=== PATIENT | female | born 1965 | race Caucasian/White ===

== ENCOUNTER 2017-07-18 22:38 | Emergency (ER) | payer OTHER ==
[~2017-07-18] VITALS: Ht 160 cm; Wt 81.6 kg
[~2017-07-18 22:38] MED LIST: BUPROPION XL300 MG ORAL; OXYCONTIN10 MG ORAL
[2017-07-18 23:23] LABS: BASOPHILS % (AUTO) 0.6 % (0.0-2.0); EOSINOPHILS % (AUTO) 10.5 % (0.0-3.0); LYMPHOCYTES % (AUTO) 13.8 % (20.0-45.0); MEAN CORPUSCULAR HEMOGLOBIN 26.8 PG (27.0-31.0); MEAN CORPUSCULAR HGB CONC 30.3 G/DL (32.0-36.0); MEAN CORPUSCULAR VOLUME 88 FL (80-99); MONOCYTES % (AUTO) 3.6 % (1.0-10.0); NEUTROPHILS % (AUTO) 71.5 % (45.0-75.0); PLATELET COUNT 257 K/UL (150-450); RED BLOOD COUNT 5.11 M/UL (4.20-5.40); WHITE BLOOD COUNT 12.6 K/UL (4.8-10.8)
[2017-07-18 23:43] LABS: APPEARANCE,URINE CLOUDY; KETONES,URINE NEGATIVE (NEGATIVE); LEUKOCYTE ESTERASE ,URINE 3+ (NEGATIVE); NITRITE,URINE POSITIVE (NEGATIVE); PH,URINE 5 (4.5-8.0); PROTEIN,URINE 2+ (NEGATIVE); UROBILINOGEN,URINE NORMAL MG/DL (0.0-1.0)
[2017-07-18 23:50] LABS: ANION GAP 9 mmol/L (5-15); CALCIUM 9.6 MG/DL (8.5-10.1); CARBON DIOXIDE 31 MMOL/L (21-32); CHLORIDE 101 MMOL/L (98-107); GLOMERULAR FILTRATION RATE 58.2 mL/min (>60); POTASSIUM 3.9 MMOL/L (3.5-5.1); SODIUM 141 MMOL/L (136-145)
[2017-07-18 23:52] LABS: BACTERIA,URINE MANY /HPF; SQUAMOUS EPITHELIAL CELL,UR MANY /LPF (NONE/OCC); WBC,URINE TNTC /HPF (0 - 2)
[2017-07-18 23:56] LABS: ALANINE AMINOTRANSFERASE 20 U/L (12-78); ALBUMIN/GLOBULIN RATIO 1.1 (1.0-2.7); ASPARTATE AMINO TRANSFERASE 12 U/L (15-37); LIPASE 175 U/L (73-393); TOTAL PROTEIN 7.6 G/DL (6.4-8.2)
[2017-07-19] MEDS ORDERED: KEFLEX500 MG ORAL (01:23)
[2017-07-19] MEDS ORDERED: Cephalexin 500mg cap ORAL ONE (01:30)
[2017-07-19 01:36] VITALS: BP 114/80
--- NOTE | 2017-07-19 03:48 | Emergency Room Report ---
History of Present Illness General Chief Complaint: Abdominal Pain Source: Patient Present Illness HPI 51-year-old female presents ED complaining of abdominal pain and nausea. Patient states that approximately 3 weeks go she had a cholecystectomy done at the [facility]. States she's been having abdominal pain and headache and dizziness for the last 3 days. Pain is sharp, 8/10, nonradiating. Denies chest pain shortness of breath. Denies any diarrhea. No other aggravating relieving factors. Denies any other associated symptoms Allergies: Coded Allergies: No Known Allergies (Unverified , 07/18/17) Patient History Past Medical History: none Past Surgical History: samuel Pertinent Family History: none Social History: Denies: smoking, alcohol use, drug use Last Menstrual Period: 3 weeks ago Now: No - unk Immunizations: UTD Reviewed Nursing Documentation: PMH: Agreed, PSxH: Agreed Nursing Documentation-PMH Past Medical History: No History, Except For Hx Gastrointestinal Problems: Yes - cholecystectomy Hx Neurological Problems: No - mastocytosis Review of Systems All Other Systems: negative except mentioned in HPI Physical Exam Vital Signs Date Time Temp Pulse Resp B/P (MAP) Pulse Ox O2 Delivery O2 Flow Rate FiO2 07/18/17 22:25 97.9 110 16 114/80 98 Room Air Sp02 EP Interpretation: reviewed, normal General Appearance: no apparent distress, alert, GCS 15, non-toxic Head: normocephalic, atraumatic Eyes: bilateral eye normal inspection, bilateral eye PERRL ENT: hearing grossly normal, normal pharynx, no angioedema, normal voice Neck: full range of motion, supple/symm/no masses Respiratory: chest non-tender, lungs clear, normal breath sounds, speaking full sentences Cardiovascular #1: regular rate, rhythm, no edema Cardiovascular #2: 2+ carotid (R), 2+ carotid (L), 2+ radial (R), 2+ radial (L) , 2+ dorsalis pedis (R), 2+ dorsalis pedis (L) Gastrointestinal: normal bowel sounds, soft, non-distended, no guarding, no rebound, tenderness - epigastric Rectal: deferred Genitourinary: normal inspection, no CVA tenderness Musculoskeletal: back normal, gait/station normal, normal range of motion, non- tender Neurologic: alert, oriented x3, responsive, motor strength/tone normal, sensory intact, speech normal Psychiatric: judgement/insight normal, memory normal, mood/affect normal, no suicidal/homicidal ideation Reflexes: 3+ bicep (R), 3+ bicep (L), 3+ tricep (R), 3+ tricep (L), 3+ knee (R) , 3+ knee (L) Skin: normal color, no rash, warm/dry, well hydrated Lymphatic: no adenopathy Medical Decision Making Diagnostic Impression: Primary Impression: UTI (urinary tract infection) Qualified Codes: N39.0 - Urinary tract infection, site not specified Additional Impression: Abdominal pain Qualified Codes: R10.13 - Epigastric pain ER Course Hospital Course 51-year-old F presents to ED with abdominal pain/vomiting. s/p lap samuel Differential diagnosis includes- SBO, postop infection, gastritis Clinical course Patient placed on stretcher. After initial history and physical I ordered labs , IV fluids, pain medications and CT scan Labs - no leukocytosis, electrolytes ok, LFTs normal, UA + bacteria CT scan shows no acute pathology, postsurgical changes noted Keflex given in ED. Patient be safely discharged to home I feel this is a highly complex case requiring extensive working including EKG/ Rhythm strip, Xray/CT/US, Blood/urine lab work, repeat exams while in ED, and administration of strong opiates/narcotics for pain control, admission to hospital or close patient follow up. Diagnosis - UTI, abdominal pain Stable and discharged to home with Rx Keflex. Followup with PMD. Return to ED if symptoms recur or worsen Labs Test 07/18/17 23:00 07/18/17 23:10 White Blood Count 12.6 K/UL (4.8-10.8) Red Blood Count 5.11 M/UL (4.20-5.40) Hemoglobin 13.7 G/DL (12.0-16.0) Hematocrit 45.2 % (37.0-47.0) Mean Corpuscular Volume 88 FL (80-99) Mean Corpuscular Hemoglobin 26.8 PG (27.0-31.0) Mean Corpuscular Hemoglobin Concent 30.3 G/DL (32.0-36.0) Red Cell Distribution Width 13.0 % (11.6-14.8) Platelet Count 257 K/UL (150-450) Mean Platelet Volume 6.0 FL (6.5-10.1) Neutrophils (%) (Auto) 71.5 % (45.0-75.0) Lymphocytes (%) (Auto) 13.8 % (20.0-45.0) Monocytes (%) (Auto) 3.6 % (1.0-10.0) Eosinophils (%) (Auto) 10.5 % (0.0-3.0) Basophils (%) (Auto) 0.6 % (0.0-2.0) Sodium Level 141 MMOL/L (136-145) Potassium Level 3.9 MMOL/L (3.5-5.1) Chloride Level 101 MMOL/L (98-107) Carbon Dioxide Level 31 MMOL/L (21-32) Anion Gap 9 mmol/L (5-15) Blood Urea Nitrogen 10 mg/dL (7-18) Creatinine 1.0 MG/DL (0.55-1.30) Estimat Glomerular Filtration Rate 58.2 mL/min (>60) Glucose Level 113 MG/DL (74-106) Calcium Level 9.6 MG/DL (8.5-10.1) Total Bilirubin 0.4 MG/DL (0.2-1.0) Aspartate Amino Transf (AST/SGOT) 12 U/L (15-37) Alanine Aminotransferase (ALT/SGPT) 20 U/L (12-78) Alkaline Phosphatase 91 U/L (46-116) Total Protein 7.6 G/DL (6.4-8.2) Albumin 3.9 G/DL (3.4-5.0) Globulin 3.7 g/dL Albumin/Globulin Ratio 1.1 (1.0-2.7) Lipase 175 U/L (73-393) Urine Color Yellow Urine Appearance Cloudy Urine pH 5 (4.5-8.0) Urine Specific [place] 1.020 (1.005-1.035) Urine Protein 2+ (NEGATIVE) Urine Glucose (UA) Negative (NEGATIVE) Urine Ketones Negative (NEGATIVE) Urine Occult Blood 1+ (NEGATIVE) Urine Nitrite Positive (NEGATIVE) Urine Bilirubin Negative (NEGATIVE) Urine Urobilinogen Normal MG/DL (0.0-1.0) Urine Leukocyte Esterase 3+ (NEGATIVE) Urine RBC 2-4 /HPF (0 - 2) Urine WBC Tntc /HPF (0 - 2) Urine Squamous Epithelial Cells Many /LPF (NONE/OCC) Urine Bacteria Many /HPF (NONE) CT/MRI/US Diagnostic Results CT/MRI/US Diagnostic Results : Imaging Test Ordered: CT A/P Impression s/p cholecystectomy. postsurgical changes Last Vital Signs Date Time Temp Pulse Resp B/P (MAP) Pulse Ox O2 Delivery O2 Flow Rate FiO2 07/19/17 01:36 97.9 16 114/80 98 Room Air 07/19/17 01:36 88 Status: improved Disposition: HOME, SELF-CARE Condition: Stable Scripts Cephalexin* (KEFLEX*) 500 Mg Capsule 500 MG ORAL Q6H, #28 CAP 0 Refills Prov: KEHINDE PANCHAL M.D. 07/19/17 Patient Instructions: Dysuria KEHINDE PANCHAL M.D. Jul 19, 2017 03:48
--- NOTE | 2017-07-19 09:22 | Diagnostic Imaging Report ---
Indication: Abdominal pain, nausea vomiting, chills. Patient status post cholecystectomy 3 weeks ago. Comparison: None Technique: Contiguous helical CT images through the abdomen and pelvis was performed with intravenous contrast only. Oral contrast was not administered. Axial, coronal and sagittal reconstructions were reformatted. CT Dose: Total DLP: 685 mGycm; Total CTDI volume 13.2 Findings: The liver appears normal. Small nonspecific low-density lesion in the dome of the liver is seen which is too small to adequately characterize. Surgical clips are seen in the gallbladder fossa consistent with prior cholecystectomy. A very small amount of fluid and some mild infiltration of the fat is seen in the region of the gallbladder fossa. This may be related to postsurgical changes however an infectious process cannot be entirely excluded. No definite fluid collection or abscess is seen. There is no bile duct dilation present. Spleen is normal. Pancreas is normal. Adrenal glands are normal. Kidneys are without hydronephrosis. Small low-density lesions in the kidney which are too small to adequately characterize is noted. No evidence of bowel obstruction. Increased stool seen throughout the colon consistent with constipation. Normal appendix. No evidence of bowel related inflammatory changes. Small amount of nonspecific free fluid in the pelvis. No evidence for free intraperitoneal gas. A dominant follicle suspected in the right ovary. Mild atelectasis at the lung bases. Mild degenerative changes of the thoracolumbar spine. Mild infiltration of subcutaneous fat in the midline of the upper abdomen which is likely related to postsurgical changes. Impression: Surgical clips are seen in the gallbladder fossa consistent with prior cholecystectomy. A very small amount of fluid and some mild infiltration of the fat is seen in the region of the gallbladder fossa. This may be related to postsurgical changes however an infectious process cannot be entirely excluded. No definite fluid collection or abscess is seen. There is no bile duct dilation present. Small amount of nonspecific free fluid in the pelvis. Dominant follicle is suspected the right ovary. Small amount of gas in the bladder. This may be related to prior recent bladder catheterization. Correlate with history. If no recent catheterization then an infectious process cannot be excluded.
== END 2017-07-19 01:40 | disposition home or self-care (01) ==
LOC: EDBD 22:38 → EMR 22:55
DX: N39.0 Urinary tract infection, site not specified (principal); R10.9 Unspecified abdominal pain; Z90.49 Acquired absence of other specified parts of digestive tract
CPT/HCPCS: 36415; 74177; 80053; 81003; 83690; 85025; 87086; 87181; 96374; 96375; 99284; J2405; Q9967